=== PATIENT | female | born 1950 | race Caucasian/White ===

== ENCOUNTER 2018-04-02 17:43 | Emergency (ER) | payer BC, OTHER ==
--- NOTE | 2018-04-02 20:32 | EDPHYS ---
Physician Documentation [facility] Name: Hannah Rizo Age: 67 yrs Sex: Female : 1950 Arrival Date: 04/02/2018 Time: 17:58 Bed 18 Private MD: None, None ED Physician Julio Baker HPI: 04/02 19:56 This 67 yrs old Female presents to ER via Ambulatory with complaints of rn Shoulder Pain. 19:56 The patient or guardian complains of decreased range of motion, an injury, pain. right rn shoulder. Onset: The symptoms/episode began/occurred today. Associated signs and symptoms: Pertinent positives: severe pain, Pertinent negatives: abdominal pain, chest pain, shortness of breath. Severity of symptoms: At their worst the symptoms were moderate, in the emergency department the symptoms are unchanged. The patient has experienced a previous episode. Reports lifting and setting down a heavy turkey with one arm, right shoulder pain immediately, heard a pop, concerned because has had rotator cuff surgery on that shoulder in past, no other injury, hurts to move right shoulder. . 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 - Social history:: Smoking status: Patient/guardian denies using tobacco. - Ebola Screening: : No symptoms or risks identified at this time. - Family history:: not pertinent. - Hospitalizations: : No recent hospitalization is reported. ROS: 19:56 Constitutional: Negative for fever, chills, and weight loss, Eyes: Negative for injury, rn pain, redness, and discharge, Neck: Negative for injury, pain, and swelling, MS/Extremity: + right shoulder injury and pain Neuro: Negative for weakness, numbness, tingling Exam: 19:56 Constitutional: This is a well developed, well nourished patient who is awake, alert, rn and in no acute distress. MS/ Extremity: Pulses equal, no cyanosis. Neurovascular intact. Painful and limited ROM right shoulder, no clavicular tenderness, + mild swelling right shoulder joint Vital Signs: 18:13 BP 169 / 87; Pulse 72; Resp 16 S; Temp 98.3(TE); Pulse Ox 98% on R/A; Weight 74.84 kg aa5 (R); Height 5 ft. 4 in. (162.56 cm) (R); Pain 8/10; 21:10 BP 143 / 74; Pulse 86; Resp 16; Pulse Ox 100% on R/A; jb4 18:13 Body Mass Index 28.32 (74.84 kg, 162.56 cm) aa5 MDM: 19:29 Patient medically screened. rn 20:26 Differential diagnosis: Anterior dislocation with fracture, Anterior dislocation rn without fracture, humeral head fracture, glenoid fracture. Data reviewed: vital signs, nurses notes, radiologic studies, plain films, and as a result, I will discharge patient. Counseling: I had a detailed discussion with the patient and/or guardian regarding: the historical points, exam findings, and any diagnostic results supporting the discharge/admit diagnosis, radiology results, the need for outpatient follow up, to return to the emergency department if symptoms worsen or persist or if there are any questions or concerns that arise at home. Response to treatment: the patient's symptoms have mildly improved after treatment, and as a result, I will discharge patient. 20:28 ED course: Pt is going to f/u with her personal orthopedist who did her rotator cuff rn [facility].. 20:30 ED course: Told patient she needs outpt MRI to fully evaluate shoulder joint given pain rn with ROM, swelling, and lack of dramatic finding on xray.. 04/02 19:08 Order name: XRAY Shoulder RIGHT 2 view; Complete Time: 20:58 rn 04/02 19:55 Order name: XRAY Shoulder (1 View); Complete Time: 21:08 rn 04/02 20:28 Order name: Shoulder Immobilizer; Complete Time: 21:11 rn Administered Medications: No medications were administered Disposition: 04/02/18 20:29 Discharged to Home. Impression: Pain in right shoulder, Unspecified sprain of right shoulder joint. - Condition is Stable. - Discharge Instructions: Joint Pain, Musculoskeletal Pain, How to Use a Shoulder Immobilizer, Shoulder Pain. - Prescriptions for Tylenol- Codeine #3 300-30 mg Oral Tablet - take 1 tablet by ORAL route every 6 hours As needed; 20 tablet. - Medication Reconciliation Form, Thank You Letter, Antibiotic Education, Prescription Opioid Use form. - Follow up: Private Physician; When: 2 - 3 days; Reason: Recheck today's complaints, Re-evaluation by your physician. - Problem is new. - Symptoms have improved. Signatures: Dispatcher [employer] EDMS Julio Baker MD MD rn Calderon, Audri, RN RN aa5 Joe Rodriguez RN RN jb4 Corrections: (The following items were deleted from the chart) 21:12 20:29 04/02/2018 20:29 Discharged to Home. Impression: Pain in right shoulder; jb4 Unspecified sprain of right shoulder joint. Condition is Stable. Forms are Medication Reconciliation Form, Thank You Letter, Antibiotic Education, Prescription Opioid Use. Follow up: Private Physician; When: 2 - 3 days; Reason: Recheck today's complaints, Re-evaluation by your physician. Problem is new. Symptoms have improved. rn
--- NOTE | 2018-04-02 20:32 | ER ---
Nurse's Notes [facility] Name: Hannah Rizo Age: 67 yrs Sex: Female : 1950 Arrival Date: 04/02/2018 Time: 17:58 Bed 18 Private MD: None, None Diagnosis: Pain in right shoulder;Unspecified sprain of right shoulder joint Presentation: 04/02 18:11 Presenting complaint: Patient states: "I hurt my shoulder lifting up a heavy turkey". aa5 Pt c/o right shoulder pain. Transition of care: patient was not received from another setting of care. Onset of symptoms was March 31, 2018. Risk Assessment: Do you want to hurt yourself or someone else? Patient reports no desire to harm self or others. Initial Sepsis Screen: Does the patient meet any 2 criteria? No. Patient's initial sepsis screen is negative. Does the patient have a suspected source of infection? No. Patient's initial sepsis screen is negative. Care prior to arrival: None. 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 - Social history:: Smoking status: Patient/guardian denies using tobacco. - Ebola Screening: : No symptoms or risks identified at this time. - Family history:: not pertinent. - Hospitalizations: : No recent hospitalization is reported. Screenin:14 Abuse screen: Denies threats or abuse. Nutritional screening: No deficits noted. jb4 Tuberculosis screening: No symptoms or risk factors identified. Fall Risk None identified. Assessment: 19:30 General: Appears in no apparent distress. comfortable, Behavior is calm, cooperative, jb4 appropriate for age. Pain: Complains of pain in anterior aspect of right shoulder Pain does not radiate. Pain currently is 7 out of 10 on a pain scale. Quality of pain is described as stabbing. Neuro: Level of Consciousness is awake, alert, obeys commands, Oriented to person, place, time, situation. Cardiovascular: Patient's skin is warm and dry. Respiratory: Airway is patent Respiratory effort is even, unlabored, Respiratory pattern is regular, symmetrical. GI: No signs and/or symptoms were reported involving the gastrointestinal system. : No signs and/or symptoms were reported regarding the genitourinary system. EENT: No signs and/or symptoms were reported regarding the EENT system. Derm: Skin is intact, Skin is pink, warm \\T\\ dry. Musculoskeletal: Circulation, motion, and sensation intact. Range of motion: limited in right shoulder. 20:30 Reassessment: Patient appears in no apparent distress at this time. Patient and/or jb4 family updated on plan of care and expected duration. Pain level reassessed. Patient is alert, oriented x 3, equal unlabored respirations, skin warm/dry/pink. 21:10 Reassessment: Patient appears in no apparent distress at this time. Patient and/or jb4 family updated on plan of care and expected duration. Pain level reassessed. Patient is alert, oriented x 3, equal unlabored respirations, skin warm/dry/pink. Vital Signs: 18:13 BP 169 / 87; Pulse 72; Resp 16 S; Temp 98.3(TE); Pulse Ox 98% on R/A; Weight 74.84 kg aa5 (R); Height 5 ft. 4 in. (162.56 cm) (R); Pain 8/10; 21:10 BP 143 / 74; Pulse 86; Resp 16; Pulse Ox 100% on R/A; jb4 18:13 Body Mass Index 28.32 (74.84 kg, 162.56 cm) aa5 ED Course: 17:58 Patient arrived in ED. mr 17:59 None, None is Private Physician. mr 18:12 Triage completed. aa5 18:12 Arm band placed on. aa5 19:28 Julio Baker MD is Attending Physician. rn 19:30 Patient has correct armband on for positive identification. Bed in low position. Call jb4 light in reach. Side rails up X 1. Pulse ox on. NIBP on. 19:41 XRAY Shoulder RIGHT 2 view In Process Unspecified. EDMS 20:04 Joe Rodriguez, BAUTISTA is Primary Nurse. jb4 20:18 XRAY Shoulder (1 View) In Process Unspecified. EDMS 21:10 No provider procedures requiring assistance completed. Patient did not have IV access jb4 during this emergency room visit. Administered Medications: No medications were administered Outcome: 20:29 Discharge ordered by . rn 21:10 Discharged to home ambulatory. jb4 21:10 Condition: stable 21:10 Discharge instructions given to patient, Instructed on discharge instructions, follow up and referral plans. medication usage, Demonstrated understanding of instructions, follow-up care, medications, Prescriptions given X 1. 21:12 Patient left the ED. jb4 Signatures: Dispatcher [employer] [facility] Jessica MaynardJulio MD MD rn Calderon, Audri, RN RN aa5 Joe Rodriguez RN RN jb4 Corrections: (The following items were deleted from the chart) : 20:14 General: Appears in no apparent distress. comfortable, Behavior is calm, jb4 cooperative, appropriate for age, jb4 : 20:14 Pain: Complains of pain in anterior aspect of right shoulder Pain does not jb4 radiate. Pain currently is 7 out of 10 on a pain scale. Quality of pain is described as stabbing, jb4 : 20:14 Neuro: Level of Consciousness is awake, alert, obeys commands, Oriented to jb4 person, place, time, situation, jb4 : 20:14 Cardiovascular: Patient's skin is warm and dry. jb4 jb4 : 20:14 Respiratory: Airway is patent Respiratory effort is even, unlabored, Respiratory jb4 pattern is regular, symmetrical, jb4 : 20:14 GI: No signs and/or symptoms were reported involving the gastrointestinal system. jb4 jb4 : 20:14 : No signs and/or symptoms were reported regarding the genitourinary system. [id number] : 20:14 EENT: No signs and/or symptoms were reported regarding the EENT system. jb4 jb4 : 20:14 Derm: Skin is intact, Skin is pink, warm \\T\\ dry. jb4 jb4 : 20:14 Musculoskeletal: Circulation, motion, and sensation intact. Range of motion: jb4 limited in right shoulder jb4
--- NOTE | 2018-04-02 20:53 | RAD REPORT ---
EXAM DESCRIPTION: Shoulder Right 2 View - 04/02/2018 7:40 pm CLINICAL HISTORY: Right shoulder pain following lifting injury, history of rotator cuff repair COMPARISON: None. TECHNIQUE: Internal and external rotation views of the right shoulder were obtained. FINDINGS: There is no fracture or dislocation. Minimal degenerative change at the AC joint. Postsur gical changes are present with surgical hardware along the undersurface of the acromion and in the la teral humeral head. Lateral margin acromial humeral joint space is narrowed. No abnormal calcificatio n in the acromial humeral joint space. Calcifications near the inferior margin of the glenoid are not suspected to be acute. IMPRESSION: No fracture or dislocation. Postsurgical changes from prior rotator cuff repair.
--- NOTE | 2018-04-02 21:06 | RAD REPORT ---
EXAM DESCRIPTION: RAD - Shoulder 1 View - 04/02/2018 8:17 pm FINDINGS: A single scapular Y-view obtained as follow-up too early shoulder exam. No dislocation. Humeral head is properly positioned. No new finding identified.
== END 2018-04-02 21:12 | disposition home or self-care (01) ==
LOC: ER 17:43
DX: S43.401A Unspecified sprain of right shoulder joint, initial encounter (principal); X50.0XXA Overexertion from strenuous movement or load, initial encounter; Y93.9 Activity, unspecified; Y92.9 Unspecified place or not applicable; I10 Essential (primary) hypertension
CPT/HCPCS: 73020; 99283